=== PATIENT | male | born 1975 | race African-American/Black ===

== ENCOUNTER 2023-02-03 18:16 | Emergency (ER) | payer SELFPAY ==
[2023-02-03 19:16] VITALS: BP 125/58
== END 2023-02-03 19:47 | disposition left against medical advice (07) | DRG 951 ==
LOC: ED 18:16 → LWOBS 19:47
DX: Z53.21 Procedure and treatment not carried out due to patient leaving prior to being seen by health care provider (principal)

== ENCOUNTER 2023-06-16 16:44 | Emergency (ER) | payer SELFPAY ==
[2023-06-16] VITALS (13 sets, daily range): BP systolic 94–138; BP diastolic 50–87
[2023-06-16 17:15] LABS: ALBUMIN 5.4 g/dL (3.2-5.0); BILIRUBIN, TOTAL 0.6 mg/dL (0.2-1.3); CREATININE 1.8 mg/dL (0.7-1.3); POTASSIUM 5.5 mmol/l (3.5-5.1); TOTAL PROTEIN 10.2 g/dL (6.3-8.2)
[2023-06-16 17:19] LABS: BASO% 0.4 % (0-3); EOS% 2.9 % (0-8); HEMATOCRIT 56.1 % (39.0-50.0); HEMOGLOBIN 18.4 g/dl (14.0-18.0); IMMATURE GRANULOCYTES 0.4 % (0.0-5.0); LYMPH% 28.2 % (15-41); MEAN CELL VOLUME 93.8 fL CALC (80.0-100.0); MEAN CORPUSCULAR HGB 30.8 pG CALC (26.0-32.0); MEAN CORPUSCULAR HGB CONC 32.8 g/dL CAL (32.0-36.0); MONO% 6.6 % (2-13); NEUT# 4.37 thou/uL (1.82-7.42); NEUT% 61.5 % (42-76); RED BLOOD COUNT 5.98 mill/uL (4.70-6.10); RED CELL DISTRI WIDTH 11.7 % (11.5-15.5)
[2023-06-16 19:11] LABS: URINE COLOR DK. YELLOW
[2023-06-16 19:12] LABS: URINE BLOOD DIPSTICK NEGATIVE (NEGATIVE); URINE GLUCOSE - DIPSTICK NEGATIVE (NEGATIVE); URINE KETONE TRACE mg/dL (NEGATIVE); URINE NITRITE - DIPSTICK NEGATIVE (Negative); URINE PH 5.5 (4.5-8.0); URINE PROTEIN - DIPSTICK 30 mg/dL (NEG-TRACE); URINE SPECIFIC GRAVITY >=1.030
[2023-06-16 19:13] LABS: URINE LEUK ESTERASE NEGATIVE (NEGATIVE)
[2023-06-16 19:14] LABS: URINE RBC 0-2 RBC/hpf (0-5); URINE WBC 0-2 WBC/hpf (0-5)
[2023-06-16] MEDS ORDERED: MIRALAX17 GM PO (21:36)
[2023-06-16] MEDS ORDERED: ONDANSETRON4 MG PO (21:36)
== END 2023-06-16 23:20 | disposition home or self-care (01) | DRG 641 ==
LOC: ED 16:44
PROVIDERS: Family Medicine
DX: E86.0 Dehydration (principal); N17.9 Acute kidney failure, unspecified; E87.5 Hyperkalemia; E16.2 Hypoglycemia, unspecified; K59.00 Constipation, unspecified; Z20.822 Contact with and (suspected) exposure to COVID-19

== ENCOUNTER 2023-11-25 08:43 | Emergency (ER) | payer SELFPAY ==
[2023-11-25] VITALS (13 sets, daily range): BP systolic 115–149; BP diastolic 71–103
[~2023-11-25] VITALS: Ht 165.1 cm; Wt 77.0 kg
[~2023-11-25 08:43] MED LIST: MIRALAX17 GM PO; ONDANSETRON4 MG PO
[2023-11-25] MEDS ORDERED: BACTRIM DS1 TAB PO (11:26)
[2023-11-25] MEDS ORDERED: MOTRIN800 MG PO (11:26)
== END 2023-11-25 11:43 | disposition home or self-care (01) | DRG 605 ==
LOC: ED 08:43
DX: S80.211A Abrasion, right knee, initial encounter (principal); L08.9 Local infection of the skin and subcutaneous tissue, unspecified; S93.401A Sprain of unspecified ligament of right ankle, initial encounter; S83.91XA Sprain of unspecified site of right knee, initial encounter; S80.01XA Contusion of right knee, initial encounter; W55.29XA Other contact with cow, initial encounter

== ENCOUNTER 2024-05-15 13:13 | Emergency (ER) | payer SELFPAY ==
[~2024-05-15 13:13] MED LIST changes: +AMOX/K CLAV875 M1 PO; +BACTRIM DS1 TAB PO; +METRONIDAZOLE500 MG PO; +MOTRIN800 MG PO; +NAPROXEN500 MG PO; +TRAMADOL HYDROC50 M1 PO
== END 2024-05-15 13:49 | disposition left against medical advice (07) | DRG 951 ==
LOC: ED 13:13 → LWOBS 13:49
DX: Z53.21 Procedure and treatment not carried out due to patient leaving prior to being seen by health care provider (principal)

== ENCOUNTER 2024-05-15 14:05 | Observation (INO) | payer SELFPAY ==
[2024-05-15] VITALS (27 sets, daily range): BP systolic 89–142; BP diastolic 43–99
[~2024-05-15] VITALS: Ht 162.6 cm; Wt 78.5 kg
[2024-05-15] MEDS ORDERED: KETOROLAC TROMETHAMINE 30 MG/ML SDV IV ONE (15:20)
[2024-05-15] MEDS ORDERED: SODIUM CHLORIDE 0.9% 1,000 ML IV ONE ×2 (15:20→17:50)
[2024-05-15 15:42] LABS: BASO% 0.7 % (0-3); EOS% 4.7 % (0-8); HEMATOCRIT 49.3 % (39.0-50.0); HEMOGLOBIN 16.5 g/dl (14.0-18.0); IMMATURE GRANULOCYTES 0.1 % (0.0-5.0); LYMPH% 35.1 % (15-41); MEAN CELL VOLUME 92.1 fL CALC (80.0-100.0); MEAN CORPUSCULAR HGB 30.8 pG CALC (26.0-32.0); MEAN CORPUSCULAR HGB CONC 33.5 g/dL CAL (32.0-36.0); MONO% 10.6 % (2-13); NEUT# 3.59 thou/uL (1.82-7.42); NEUT% 48.8 % (42-76); RED BLOOD COUNT 5.35 mill/uL (4.70-6.10); RED CELL DISTRI WIDTH 12.1 % (11.5-15.5)
[2024-05-15 15:52] LABS: ALBUMIN 4.9 g/dL (3.2-5.0); ALKALINE PHOSPHATASE 93 u/l (38-126); ANION GAP 10 (6-22 (CALC)); BILIRUBIN, TOTAL 0.8 mg/dL (0.2-1.3); BUN 28 mg/dL (9-20); BUN/CREATININE RATIO 23 (12-20 (CALC)); CARBON DIOXIDE 24 mmol/l (22-30); CHLORIDE 107 mmol/l (95-108); CREATININE 1.2 mg/dL (0.7-1.3); ESTIMATED GFR 74 ML/MIN (>=90 (CALC)); POTASSIUM 4.9 mmol/l (3.5-5.1); SODIUM 137 mmol/l (137-146); TOTAL PROTEIN 8.8 g/dL (6.3-8.2)
[2024-05-15 15:59] LABS: CPK > 3200 u/l (55-170); SGOT/AST 93 u/l (17-59)
[2024-05-15] MEDS ORDERED: MAGNESIUM HYDROXIDE 30 ML UDC PO PRN (18:10)
[2024-05-15] MEDS ORDERED: CYCLOBENZAPRINE HCL 5 MG TAB PO PRN (18:10)
[2024-05-15] MEDS ORDERED: ACETAMINOPHEN 325 MG/TAB PO PRN (18:10)
[2024-05-15] MEDS ORDERED: LACTATED RINGER'S 1,000 ML IV PRN (18:10)
[2024-05-15] MEDS ORDERED: HYDROcodone 5 MG/Acetaminophen 325 MG/COMBO PO PRN (18:15)
[2024-05-15] MEDS ORDERED: traMADol HCL 50 MG/TAB PO PRN (18:15)
[2024-05-15] MEDS ORDERED: Zaleplon 5 MG/CAP PO PRN (18:15)
[2024-05-15] MEDS ORDERED: ENOXAPARIN SODIUM 40 MG/0.4 ML SYR SC SCH (21:00)
[2024-05-16 05:31] LABS: BASO% 0.5 % (0-3); EOS% 6.7 % (0-8); IMMATURE GRANULOCYTES 0.3 % (0.0-5.0); MEAN CELL VOLUME 93.6 fL CALC (80.0-100.0); MEAN CORPUSCULAR HGB CONC 33.1 g/dL CAL (32.0-36.0); MONO% 12.8 % (2-13); NEUT# 1.97 thou/uL (1.82-7.42); NEUT% 31.7 % (42-76); RED BLOOD COUNT 4.39 mill/uL (4.70-6.10); RED CELL DISTRI WIDTH 12.1 % (11.5-15.5)
[2024-05-16 05:41] LABS: HEMATOCRIT 41.1 % (39.0-50.0); HEMOGLOBIN 13.6 g/dl (14.0-18.0)
[2024-05-16 05:56] LABS: BILIRUBIN, TOTAL 0.6 mg/dL (0.2-1.3); CHOLESTEROL HDL RATIO 3.9 (<4.4 (CALC)); CREATININE 1.2 mg/dL (0.7-1.3); MAGNESIUM 2.3 mg/dL (1.6-2.3); POTASSIUM 4.4 mmol/l (3.5-5.1)
[2024-05-16 06:09] LABS: ALBUMIN 3.3 g/dL (3.2-5.0); TOTAL PROTEIN 6.1 g/dL (6.3-8.2)
== END 2024-05-16 12:47 | disposition home or self-care (01) | DRG 558 ==
LOC: ED 14:05 → ED-I 15:43 → ED 17:47 → MS2 17:48
PROVIDERS: Emergency Medicine; ADMIT Student in an Organized Health Care Education/Training Program; ATTEND Student in an Organized Health Care Education/Training Program
DX: M62.82 Rhabdomyolysis (principal); X30.XXXA Exposure to excessive natural heat, initial encounter; Y93.89 Activity, other specified
CPT/HCPCS: G0378; J1650

== ENCOUNTER 2025-01-20 09:42 | Emergency (ER) | payer SELFPAY ==
[~2025-01-20] VITALS: Ht 162.6 cm; Wt 72.0 kg
[2025-01-20] MEDS ORDERED: SODIUM CHLORIDE 0.9% 1,000 ML IV STA (10:43)
[2025-01-20] MEDS ORDERED: Pantoprazole Sodium 40 MG VIAL (Protonix) IV STA (10:43)
[2025-01-20] MEDS ORDERED: PROMETHAZINE HCL 25 MG/ML AMP IV STA (10:43)
[2025-01-20 11:09] LABS: BASO% 0.1 % (0-3); EOS% 1.3 % (0-8); IMMATURE GRANULOCYTES 0.1 % (0.0-5.0); LYMPH% 10.4 % (15-41); MEAN CELL VOLUME 94.6 fL CALC (80.0-100.0); MEAN CORPUSCULAR HGB 31.5 pG CALC (26.0-32.0); MEAN CORPUSCULAR HGB CONC 33.3 g/dL CAL (32.0-36.0); MONO% 6.5 % (2-13); NEUT# 12.37 thou/uL (1.82-7.42); NEUT% 81.6 % (42-76); RED BLOOD COUNT 5.21 mill/uL (4.70-6.10); RED CELL DISTRI WIDTH 12.1 % (11.5-15.5)
[2025-01-20 11:18] LABS: HEMATOCRIT 49.3 % (39.0-50.0); HEMOGLOBIN 16.4 g/dl (14.0-18.0)
[2025-01-20 12:59] LABS: ALKALINE PHOSPHATASE 76 u/l (38-126); ANION GAP 15 (6-22 (CALC)); BILIRUBIN, TOTAL 0.5 mg/dL (0.2-1.3); BUN 18 mg/dL (9-20); BUN/CREATININE RATIO 18 (12-20 (CALC)); CARBON DIOXIDE 29 mmol/l (22-30); CHLORIDE 105 mmol/l (95-108); ESTIMATED GFR 91 ML/MIN (>=90 (CALC)); ETHYL ALCOHOL 0 mg/dl (0-30); LIPASE 100 u/l (23-300); SGOT/AST 42 u/l (17-59); SODIUM 143 mmol/l (137-146)
[2025-01-20 13:00] LABS: ALBUMIN 4.8 g/dL (3.2-5.0); TOTAL PROTEIN 8.4 g/dL (6.3-8.2)
[2025-01-20 13:10] LABS: URINE BILIRUBIN - DIPSTICK Negative (NEGATIVE); URINE BLOOD DIPSTICK Negative (NEGATIVE); URINE GLUCOSE - DIPSTICK Negative (NEGATIVE); URINE KETONE Negative (NEGATIVE); URINE LEUK ESTERASE Negative (NEGATIVE); URINE NITRITE - DIPSTICK Negative (Negative); URINE PROTEIN - DIPSTICK Trace mg/dL (NEG-TRACE); URINE SPECIFIC GRAVITY 1.025; URINE UROBILINOGEN - DIPSTICK 0.2 E.U./dL (0.2)
[2025-01-20 13:16] LABS: URINE COLOR Yellow
[2025-01-20] MEDS ORDERED: PROTONIX40 MG PO (13:32)
[2025-01-20] MEDS ORDERED: ZOFRAN4 MG/TAB PO (13:32)
[2025-01-20 13:58] VITALS: BP 121/80
== END 2025-01-20 13:59 | disposition home or self-care (01) | DRG 392 ==
LOC: ED 09:42
PROVIDERS: Emergency Medicine
DX: R10.13 Epigastric pain (principal); R11.2 Nausea with vomiting, unspecified; F12.90 Cannabis use, unspecified, uncomplicated
CPT/HCPCS: J2470; J2550